=== PATIENT | male | born 2000 | race Caucasian/White ===

== ENCOUNTER 2023-06-12 08:18 | Emergency (ER) | payer OTHER ==
[2023-06-12] MEDS: Sodium Chloride 0.9% 10 ML Syringe FLUSH PRN ×2 (09:05→10:09)
[2023-06-12] MEDS: Iopamidol 612 MG/ML 100 ML Bottle IVPUSH ONE (09:05)
[2023-06-12] MEDS: Iopamidol 612 MG/ML 30 ML SDV IV ONE (09:05)
[2023-06-12 09:42] LABS: BASOPHILS ABSOLUTE AUTO 0.1 K/mm3 (0.0-0.2); BASOPHILS PERCENT AUTO 0.4 % (0.0-1.0); EOSINOPHILS ABSOLUTE AUTO 0.5 K/mm3 (0.0-0.4); EOSINOPHILS PERCENT AUTO 3.5 % (0.0-6.0); HEMATOCRIT 41.8 % (42.0-52.0); IMMATURE GRAN PERCENT AUTO 1.4 % (0.0-0.4); LYMPHOCYTES ABSOLUTE AUTO 1.8 K/mm3 (1.0-4.8); LYMPHOCYTES PERCENT AUTO 12.6 % (24.0-44.0); MEAN CORPUSCULAR HEMOGLOBIN 29.8 pg (28.0-32.0); MEAN CORPUSCULAR HGB CONC 33.5 g/dl (32.0-36.0); MEAN CORPUSCULAR VOLUME 88.9 fl (83.0-99.0); MEAN PLATELET VOLUME 8.7 fl (9.4-12.4); MONOCYTES ABSOLUTE AUTO 0.9 K/mm3 (0.0-0.8); MONOCYTES PERCENT AUTO 6.5 % (0.0-8.0); NEUTROPHILS ABSOLUTE AUTO 10.5 K/mm3 (1.8-7.7); NEUTROPHILS PERCENT AUTO 75.6 % (41.0-71.0); PLATELET COUNT,PLT 269 K/mm3 (150-400); WHITE BLOOD CELL COUNT,WBC 13.84 K/mm3 (3.9-11.3)
[2023-06-12] MEDS: Ketorolac 30 MG/ML SDV IVPUSH ONE (10:00)
[2023-06-12] MEDS: Diphtheria,Pertussis(Acell),Tetanus Vaccine 0.5 ML Syringe IM ONE (10:00)
[2023-06-12 10:08] LABS: A/G RATIO 1.2 (1-2); ALBUMIN 3.8 g/dl (3.4-5.0); ANION GAP 12.8 (5-15); BILIRUBIN TOTAL 0.5 mg/dL (0.2-1.0); BUN/CREATININE RATIO 10.9 (14-18); CALCIUM 9.3 mg/dL (8.5-10.1); CREATININE 1.1 mg/dL (0.7-1.3); EST CRCL DRUG DOSING (CG) 123.76 mL/min; MAGNESIUM 2.3 mg/dL (1.8-2.4); POTASSIUM,K 3.8 mEq/L (3.5-5.1)
[2023-06-12] MEDS: oxyCODONE 5 MG Tab PO ONE (12:45)
== END 2023-06-12 13:32 | disposition home or self-care (01) ==
LOC: JD.ED 08:18
DX: S42.025A Nondisplaced fracture of shaft of left clavicle, initial encounter for closed fracture (principal); S01.81XA Laceration without foreign body of other part of head, initial encounter; M79.674 Pain in right toe(s); Z23 Encounter for immunization; V53.5XXA Driver of pick-up truck or van injured in collision with car, pick-up truck or van in traffic accident, initial encounter; Y93.89 Activity, other specified
CPT/HCPCS: 36415; 70450; 71045; 71260; 72125; 72170; 73030; 73080; 73090; 73660; 74177; 80053; 83735; 85025; 90471; 90715; 96374; 99284; A9270; J1885; J3490; Q9967